=== PATIENT | male | born 2000 | race Hispanic/Latino ===

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

== ENCOUNTER 2023-07-22 23:47 | Emergency (ER) | payer BC, OTHER ==
[~2023-07-22] VITALS: Ht 172 cm; Wt 95.2 kg
[~2023-07-22 23:47] MED LIST: PRD20T PO
--- NOTE | 2023-07-23 01:14 | ED General ---
General Chief Complaint: Head/Cervical Problems Stated Complaint: SMITH,NAUSEA,VOMITING Nursing Triage Note: Patient ambulatory to room 03 with mom and dad c/o headache. Patient states he was playing tennis 1 hr ago,when he came to an abrupt stop before hitting the ball and could "feel the blood come from my chest all the way up into my head and now I have a headache." Patient couldn't finish the game. Patient holding head in hands and shaking. nausea started in the while in the waiting room. no hx of migraines. Source of Information: Patient Exam Limitations: No Limitations History of Present Illness Date Seen by Provider: Jul 23, 2023 Time Seen by Provider: 00:57 Allergies and Home Medications Allergies Coded Allergies: No Known Drug Allergies (Unverified , 12/21/16) Patient Home Medication List Prednisone (Prednisone) 20 Mg Tab, 20 MG PO DAILY Prescribed by: DIANDRA COTO on 12/21/16 0333 Past Eusaaee-Eutlgn-Kxoohg Hx Patient Social History Tobacco Use?: No Substance use?: No Alcohol Use?: Yes Alcohol type: Beer Alcohol Frequency: Couple times a week Immunizations Up To Date Tetanus Booster (TDap): Less than 5yrs PED Vaccines UTD: Yes Seasonal Allergies Seasonal Allergies: No Past Medical History Reproductive Disorders: No Adverse Reaction/Blood Tranf: No Physical Exam Vital Signs Vital Signs - First Documented 07/23/23 00:00 Temp 37.2 Pulse 112 Resp 18 B/P (MAP) 155/109 (124) Pulse Ox 99 O2 Delivery Room Air Capillary Refill : Less Than 3 Seconds Height, Weight, BMI Height: 5'9" Weight: 165lbs. oz. [id number]; 32.00 BMI Method:Stated Progress/Results/Core Measures Suspected Sepsis SIRS Temperature: Pulse: 112 Respiratory Rate: 18 Laboratory Tests 07/23/23 00:14: White Blood Count 11.6H Blood Pressure 155 /109 Mean: 124 Laboratory Tests 07/23/23 00:14: Creatinine 1.44H, Platelet Count 389 Results/Orders Lab Results Laboratory Tests Test 07/23/23 00:14 07/23/23 01:08 Range/Units White Blood Count 11.6 H 4.3-11.0 10^3/uL Red Blood Count 5.22 4.30-5.52 10^6/uL Hemoglobin 16.6 13.3-17.7 g/dL Hematocrit 48 40-54 % Mean Corpuscular Volume 91 80-99 fL Mean Corpuscular Hemoglobin 32 25-34 pg Mean Corpuscular Hemoglobin Concent 35 32-36 g/dL Red Cell Distribution Width 12.1 10.0-14.5 % Platelet Count 389 130-400 10^3/uL Mean Platelet Volume 9.8 9.0-12.2 fL Immature Granulocyte % (Auto) 0 % Neutrophils (%) (Auto) 72 42-75 % Lymphocytes (%) (Auto) 17 12-44 % Monocytes (%) (Auto) 9 0-12 % Eosinophils (%) (Auto) 0 0-10 % Basophils (%) (Auto) 1 0-10 % Neutrophils # (Auto) 8.4 H 1.8-7.8 10^3/uL Lymphocytes # (Auto) 2.0 1.0-4.0 10^3/uL Monocytes # (Auto) 1.1 H 0.0-1.0 10^3/uL Eosinophils # (Auto) 0.1 0.0-0.3 10^3/uL Basophils # (Auto) 0.1 0.0-0.1 10^3/uL Immature Granulocyte # (Auto) 0.1 0.0-0.1 10^3/uL Sodium Level 139 135-145 MMOL/L Potassium Level 4.1 3.6-5.0 MMOL/L Chloride Level 105 98-107 MMOL/L Carbon Dioxide Level 20 L 21-32 MMOL/L Anion Gap 14 5-14 MMOL/L Blood Urea Nitrogen 22 H 7-18 MG/DL Creatinine 1.44 H 0.60-1.30 MG/DL Estimat Glomerular Filtration Rate 70 BUN/Creatinine Ratio 15 Glucose Level 99 70-105 MG/DL Calcium Level 9.9 8.5-10.1 MG/DL Magnesium Level 1.8 1.6-2.4 MG/DL Total Creatine Kinase 458 H 30-200 U/L Influenza Type A (RT-PCR) Not Detected Not Detecte Influenza Type B (RT-PCR) Not Detected Not Detecte SARS-CoV-2 RNA (RT-PCR) Not Detected Not Detecte My Orders Orders - DIANDRA CA MD Covid 19 Inhouse Test (07/23/23 00:57) Influenza A And B By Pcr (07/23/23 00:57) Ondansetron Injection (Zofran Injectio (07/23/23 01:15) Ed Iv/Invasive Line Start (07/23/23 01:11) Lactated Ringers (Lr 1000 Ml Iv Solution (07/23/23 01:15) Fentanyl Injection (Fentanyl Injection (07/23/23 01:15) Basic Metabolic Panel (07/23/23 01:11) Cbc With Automated Diff (07/23/23 01:11) Creatine Kinase (07/23/23 01:11) Magnesium (07/23/23 01:11) Ns Iv 1000 Ml (Sodium Chloride 0.9%) (07/23/23 02:00) Ketorolac Injection (Ketorolac Injection (07/23/23 02:00) Medications Given in ED Current Medications Medications Dose Ordered Sig/Edy Route Start Time Stop Time Status Last Admin Dose Admin Fentanyl Citrate 50 mcg ONCE ONCE IVP 07/23/23 01:15 07/23/23 01:16 DC 07/23/23 01:25 50 MCG Ketorolac Tromethamine 30 mg ONCE ONCE IVP 07/23/23 02:00 07/23/23 02:01 DC 07/23/23 02:25 30 MG Lactated Ringer's 1,000 ml @ 0 mls/hr Q0M ONCE IV 07/23/23 01:15 07/23/23 01:16 DC 07/23/23 01:25 999 MLS/HR Ondansetron HCl 8 mg ONCE ONCE IVP 07/23/23 01:15 07/23/23 01:16 DC 07/23/23 01:25 8 MG Vital Signs/I&O 07/23/23 00:00 Temp 37.2 Pulse 112 Resp 18 B/P (MAP) 155/109 (124) Pulse Ox 99 O2 Delivery Room Air Capillary Refill : Less Than 3 Seconds Blood Pressure Mean: 124 Departure Impression Primary Impression: Rhabdomyolysis Qualified Codes: M62.82 - Rhabdomyolysis Additional Impressions: Acute headache Qualified Codes: R51.9 - Headache, unspecified Hypovolemia Disposition: 01 HOME, SELF-CARE Condition: Improved Departure-Patient Inst. Decision time for Depature: 02:31 Referrals: DEMARCO GARZA DO (PCP/Family) Primary Care Physician Patient Instructions: Rhabdomyolysis Add. Discharge Instructions: Drink plenty of clear liquids to stay well-hydrated. Eat a well-balanced diet. Please rest for the remainder of today. Avoid heat exposure and any strenuous activities. Headache or aches and pains you may take Tylenol (acetaminophen) up to 1000 mg every 6 hours as needed. For pain not controlled by Tylenol, you may add ibuprofen up to 600 mg every 6 hours as needed. If your symptoms have not completely resolved within 24 hours or getting worse, please return to the emergency room. All discharge instructions reviewed with patient and/or family. Voiced understanding. Work/School Note: Work Release Form Date Seen in the Emergency Department: Jul 23, 2023 Return to Work: Jul 24, 2023 Restrictions: No Restrictions DIANDRA CA MD Jul 23, 2023 01:14
[2023-07-23] MEDS ORDERED: fentaNYL INJECTION 100 MCG/2 ML VIAL IVP ONE (01:15)
[2023-07-23] MEDS ORDERED: ONDANSETRON INJECTION 4 MG/2 ML (SDV) IVP ONE (01:15)
[2023-07-23] MEDS ORDERED: LACTATED RINGERS 1,000 ML 1,000 ML IV ONE (01:15)
[2023-07-23 01:22] LABS: BASOPHILS # (AUTO) 0.1 10^3/uL (0.0-0.1); BASOPHILS % (AUTO) 1 % (0-10); EOSINOPHILS # (AUTO) 0.1 10^3/uL (0.0-0.3); EOSINOPHILS % (AUTO) 0 % (0-10); HEMATOCRIT 48 % (40-54); HEMOGLOBIN 16.6 g/dL (13.3-17.7); LYMPHOCYTES % (AUTO) 17 % (12-44); MEAN CORPUSCULAR HEMOGLOBIN 32 pg (25-34); MEAN CORPUSCULAR HGB CONC 35 g/dL (32-36); MEAN CORPUSCULAR VOLUME 91 fL (80-99); MEAN PLATELET VOLUME 9.8 fL (9.0-12.2); MONOCYTES # (AUTO) 1.1 10^3/uL (0.0-1.0); MONOCYTES % (AUTO) 9 % (0-12); NEUTROPHILS # (AUTO) 8.4 10^3/uL (1.8-7.8); NEUTROPHILS % (AUTO) 72 % (42-75); PLATELET COUNT 389 10^3/uL (130-400); POTASSIUM 4.1 MMOL/L (3.6-5.0); WHITE BLOOD COUNT 11.6 10^3/uL (4.3-11.0)
[2023-07-23 01:24] LABS: CALCIUM 9.9 MG/DL (8.5-10.1)
[2023-07-23 01:28] LABS: CREATININE SERUM 1.44 MG/DL (0.60-1.30)
[2023-07-23 01:30] LABS: MAGNESIUM 1.8 MG/DL (1.6-2.4)
[2023-07-23] MEDS ORDERED: KETOROLAC INJ 30 MG/ML VIAL IVP ONE (02:00)
[2023-07-23] MEDS ORDERED: NS IV 1000 ML 1,000 ML IV SCH (02:00)
[2023-07-23 03:34] VITALS: BP 131/92
== END 2023-07-23 03:37 | disposition home or self-care (01) ==
LOC: EDUNIT# 23:47 → ER 23:51
DX: T79.6XXA Traumatic ischemia of muscle, initial encounter (principal); E86.1 Hypovolemia; R51.9 Headache, unspecified; Z28.310 Unvaccinated for COVID-19; Z20.822 Contact with and (suspected) exposure to COVID-19; W21.00XA Struck by hit or thrown ball, unspecified type, initial encounter; Y93.73 Activity, racquet and hand sports
CPT/HCPCS: 36415; 80048; 82550; 83735; 85025; 87636